=== PATIENT | male | born 2005 | race Caucasian/White ===

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

== ENCOUNTER 2024-08-27 09:39 | Emergency (ER) | payer OTHER ==
[~2024-08-27] VITALS: Ht 177.8 cm; Wt 72.6 kg
[2024-08-27 10:43] VITALS: BP 138/83
== END 2024-08-27 11:31 | disposition home or self-care (01) ==
LOC: ER 09:39
DX: S94.91XA Injury of unspecified nerve at ankle and foot level, right leg, initial encounter (principal); W51.XXXA Accidental striking against or bumped into by another person, initial encounter; Y93.67 Activity, basketball
CPT/HCPCS: 73620; 99283-25